=== PATIENT | female | born 1985 | race Two or more races ===

== ENCOUNTER 2019-05-18 11:16 | Inpatient (IN) | payer OTHER ==
[2019-05-18 13:13] VITALS: BMI 23.0
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
[2019-05-18] MEDS ORDERED: MAGNESIUM HYDROX 2400MG/30ML ORAL SUSPENSION 30 ML CUP PO PRN (14:32)
[2019-05-18] MEDS ORDERED: MAG HYDROX/AL HYDROX/SIMETH 30 ML UNIT-DOSE CUP PO PRN (14:32)
[2019-05-18] MEDS ORDERED: BISMUTH SUBSALICYLATE 262 MG/15 ML BTL PO PRN (14:32)
[2019-05-18] MEDS ORDERED: IBUPROFEN 400 MG TABLET (FP) PO PRN ×2 (14:32)
[2019-05-18] MEDS ORDERED: MAGNESIUM CITRATE 300 ML BOTTLE PO PRN (14:32)
[2019-05-18] MEDS ORDERED: MENTHOL/PHENOL 1 EACH UD MM PRN (14:32)
[2019-05-18] MEDS ORDERED: chlordiazePOXIDE HCL 25 MG CAPSULE PO PRN (14:32)
[2019-05-18] MEDS ORDERED: ONDANSETRON *ODT* 4 MG TABLET SL PRN (14:32)
[2019-05-18] MEDS ORDERED: ACETAMINOPHEN 325 MG TABLET (FP) PO PRN (14:32)
[2019-05-18] MEDS ORDERED: chlordiazePOXIDE HCL 25 MG CAPSULE PO ONE (15:45)
[2019-05-18 16:34] LABS: HEMATOCRIT 37.4 % (32.4-45.2); HEMOGLOBIN 12.5 GM/dL (10.7-15.3); MCH 32.1 pg (25.7-33.7); MCHC 33.5 g/dl (32.0-36.0); MEAN CELL VOLUME 95.8 fl (80-96); MEAN PLT VOLUME 8.3 fl (7.5-11.1); PLATELET COUNT 244 K/MM3 (134-434); RBC 3.91 M/mm3 (3.60-5.2); RDW 13.3 % (11.6-15.6); WHITE BLOOD COUNT 11.2 K/mm3 (4.0-10.0)
[2019-05-18 16:48] LABS: ALBUMIN 3.2 g/dl (3.4-5.0); BILIRUBIN,TOTAL 0.2 mg/dL (0.2-1); CALCIUM 8.6 mg/dL (8.5-10.1); CREATININE 0.7 mg/dL (0.55-1.3); POTASSIUM 3.3 mmol/L (3.5-5.1); TOT PROT 6.1 g/dl (6.4-8.2)
[2019-05-18] MEDS: chlordiazePOXIDE HCL 25 MG CAPSULE PO SCH ×2 (16:55→22:59)
[2019-05-18] MEDS: hydrOXYzine PAMOATE 50 MG CAPSULE (FP) PO PRN (16:56)
--- NOTE | 2019-05-18 17:29 | EKG ---
Test Reason : Blood Pressure : / mmHG Vent. Rate : 043 BPM Atrial Rate : 043 BPM P-R Int : 164 ms QRS Dur : 088 ms QT Int : 520 ms P-R-T Axes : 055 015 039 degrees QTc Int : 439 ms MARKED SINUS BRADYCARDIA NONSPECIFIC T WAVE ABNORMALITY ABNORMAL ECG NO PREVIOUS ECGS AVAILABLE Confirmed by NICANOR GONZALEZ MD ([id number]) on 05/18/2019 5:29:40 PM Referred By: Confirmed By:NICANOR GONZALEZ MD
[2019-05-18] MEDS: THIAMINE HCL 100 MG TABLET (FP) PO SCH (22:56)
[2019-05-18] MEDS: MELATONIN 5 MG TABLETS PO PRN (22:56)
[2019-05-19] MEDS: chlordiazePOXIDE HCL 25 MG CAPSULE PO SCH ×4 (05:26→22:24)
[2019-05-19] MEDS: ACETAMINOPHEN 325 MG TABLET (FP) PO PRN (05:27)
--- NOTE | 2019-05-19 09:52 | PN ---
S CIWA - CIWA Score Nausea/Vomitin-Mild Nausea/No Vomiting Muscle Tremors: 4-Moderate,w/Arms Extend Anxiety: 3 Agitation: 2 Paroxysmal Sweats: 1-Minimal Palms Moist Orientation: 1-Uncertain about Date Tacttile Disturbances: 1-Very Mild Itch/Numbness Auditory Disturbances: 0-None Visual Disturbances: 0-None Headache: 0-None Present CIWA-Ar Total Score: 13 BHS Progress Note (SOAP) Subjective: 34 years old female admitted on 05/18/19 for acute alcohol and benzo withdrawal sx management doing well with librium detox protocol social with peers in day room after breakfast ambulate on hallway Objective: 05/19/19 10:00 Vital Signs Temperature 98.5 F 05/19/19 09:37 Pulse Rate 59 L 05/19/19 09:37 Respiratory Rate 18 05/19/19 09:37 Blood Pressure 121/58 L 05/19/19 09:37 O2 Sat by Pulse Oximetry (%) Laboratory Last Values WBC 11.2 K/mm3 (4.0-10.0) H 05/18/19 15:10 RBC 3.91 M/mm3 (3.60-5.2) 05/18/19 15:10 Hgb 12.5 GM/dL (10.7-15.3) 05/18/19 15:10 Hct 37.4 % (32.4-45.2) 05/18/19 15:10 MCV 95.8 fl (80-96) 05/18/19 15:10 MCH 32.1 pg (25.7-33.7) 05/18/19 15:10 MCHC 33.5 g/dl (32.0-36.0) 05/18/19 15:10 RDW 13.3 % (11.6-15.6) 05/18/19 15:10 Plt Count 244 K/MM3 (134-434) D 05/18/19 15:10 MPV 8.3 fl (7.5-11.1) 05/18/19 15:10 Sodium 143 mmol/L (136-145) 05/18/19 15:10 Potassium 3.3 mmol/L (3.5-5.1) L 05/18/19 15:10 Chloride 105 mmol/L (98-107) 05/18/19 15:10 Carbon Dioxide 33 mmol/L (21-32) H 05/18/19 15:10 Anion Gap 5 MMOL/L (8-16) L 05/18/19 15:10 BUN 5.0 mg/dL (7-18) L 05/18/19 15:10 Creatinine 0.7 mg/dL (0.55-1.3) 05/18/19 15:10 Est GFR (CKD-EPI)AfAm 131.94 05/18/19 15:10 Est GFR (CKD-EPI)NonAf 113.84 05/18/19 15:10 Random Glucose 62 mg/dL (74-106) L 05/18/19 15:10 Calcium 8.6 mg/dL (8.5-10.1) 05/18/19 15:10 Total Bilirubin 0.2 mg/dL (0.2-1) 05/18/19 15:10 AST 10 U/L (15-37) L 05/18/19 15:10 ALT 14 U/L (13-61) 05/18/19 15:10 Alkaline Phosphatase 77 U/L (45-117) 05/18/19 15:10 Total Protein 6.1 g/dl (6.4-8.2) L 05/18/19 15:10 Albumin 3.2 g/dl (3.4-5.0) L 05/18/19 15:10 POC Urine HCG, Qual Negative 05/18/19 14:06 RPR Titer Nonreactive (NONREACTIVE) 05/18/19 15:10 lab noted low K+ 05/19/19 10:04 repeat K+ 05/22/19 K+ supplement 20 meq bid x 6 doses Assessment: 05/19/19 10:04 alcohol and benzo withdrawal sx Plan: continue alcohol and benzo detox
[2019-05-19] MEDS ORDERED: METHADONE HCL 40 MG DISPERSABLE TABLET PO ONE (10:00)
[2019-05-19] MEDS ORDERED: POTASSIUM CHLORIDE ORAL LIQUID 20 MEQ/15 ML PO SCH (10:00)
[2019-05-19] MEDS: PRENATAL VITAMINS W/ FOLIC ACID TABLET (FP) PO SCH (10:59)
[2019-05-19] MEDS: POTASSIUM CHLORIDE TABS 20 MEQ TABLET.ER (FP) PO SCH (11:02)
[2019-05-19] MEDS: NICOTINE 21 MG/24 HOURS TOPICAL PATCH TD SCH (11:03)
[2019-05-19] MEDS: METHOCARBAMOL 500 MG TABLET PO PRN (11:51)
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
[2019-05-19 15:05] LABS: URINE APPEARANCE CLEAR; URINE BILIRUBIN NEGATIVE (NEGATIVE); URINE COLOR YELLOW; URINE GLUCOSE (UA) NEGATIVE (NEGATIVE); URINE KETONE NEGATIVE (NEGATIVE); URINE LEUK ESTERASE NEGATIVE (NEGATIVE); URINE NITRITE NEGATIVE (NEGATIVE); URINE PROTEIN NEGATIVE (NEGATIVE); URINE UROBILINOGEN 0.2 mg/dL (0.2-1.0)
[2019-05-19] MEDS: NICOTINE POLACRILEX 4 MG GUM BUC PRN (15:46)
[2019-05-19] MEDS: THIAMINE HCL 100 MG TABLET (FP) PO SCH (22:24)
[2019-05-19] MEDS: METHYL SALICYLATE/MENTHOL OINT 30 GM TUBE TP SCH (22:24)
[2019-05-19] MEDS: MELATONIN 5 MG TABLETS PO PRN (22:25)
[2019-05-20] MEDS: hydrOXYzine PAMOATE 50 MG CAPSULE (FP) PO PRN (03:32)
[2019-05-20] MEDS: ACETAMINOPHEN 325 MG TABLET (FP) PO PRN (03:32)
[2019-05-20] MEDS: METHADONE HCL 40 MG DISPERSABLE TABLET PO SCH (05:18)
[2019-05-20] MEDS: chlordiazePOXIDE HCL 25 MG CAPSULE PO SCH ×4 (05:19→22:37)
--- NOTE | 2019-05-20 10:36 | PN ---
S CIWA - CIWA Score Nausea/Vomitin-Mild Nausea/No Vomiting Muscle Tremors: 2 Anxiety: 1-Mildly Anxious Agitation: 2 Paroxysmal Sweats: 1-Minimal Palms Moist Orientation: 0-Oriented Tacttile Disturbances: 0-None Auditory Disturbances: 0-None Visual Disturbances: 0-None Headache: 1-Very Mild CIWA-Ar Total Score: 8 BHS Progress Note (SOAP) Subjective: pt states she is feeling OK. ON detox protocol O: Vital Signs - 24 hr 05/19/19 05/19/19 05/19/19 14:10 17:48 21:20 Temperature 96.0 F L 97.5 F L 97 F L Pulse Rate 49 L 44 L 60 Respiratory 20 16 17 Rate Blood Pressure 103/59 L 111/66 100/54 L 05/20/19 05/20/19 05/20/19 03:30 06:38 09:32 Temperature 97 F L 96.9 F L Pulse Rate 53 L 52 L Respiratory 18 17 18 Rate Blood Pressure 98/54 L 96/60 Laboratory Tests 05/18/19 05/18/19 05/18/19 14:06 15:10 15:10 WBC 11.2 H RBC 3.91 Hgb 12.5 Hct 37.4 MCV 95.8 MCH 32.1 MCHC 33.5 RDW 13.3 Plt Count 244 D MPV 8.3 Sodium 143 Potassium 3.3 L Chloride 105 Carbon Dioxide 33 H Anion Gap 5 L BUN 5.0 L Creatinine 0.7 Est GFR (CKD-EPI)AfAm 131.94 Est GFR (CKD-EPI)NonAf 113.84 Random Glucose 62 L Calcium 8.6 Total Bilirubin 0.2 AST 10 L ALT 14 Alkaline Phosphatase 77 Total Protein 6.1 L Albumin 3.2 L Urine Color Urine Appearance Urine pH Ur Specific [place] Urine Protein Urine Glucose (UA) Urine Ketones Urine Blood Urine Nitrite Urine Bilirubin Urine Urobilinogen Ur Leukocyte Esterase POC Urine HCG, Qual Negative RPR Titer 05/18/19 05/19/19 15:10 12:00 WBC RBC Hgb Hct MCV MCH MCHC RDW Plt Count MPV Sodium Potassium Chloride Carbon Dioxide Anion Gap BUN Creatinine Est GFR (CKD-EPI)AfAm Est GFR (CKD-EPI)NonAf Random Glucose Calcium Total Bilirubin AST ALT Alkaline Phosphatase Total Protein Albumin Urine Color Yellow Urine Appearance Clear Urine pH 8.0 D Ur Specific [place] 1.004 L Urine Protein Negative Urine Glucose (UA) Negative Urine Ketones Negative Urine Blood Negative Urine Nitrite Negative Urine Bilirubin Negative Urine Urobilinogen 0.2 Ur Leukocyte Esterase Negative POC Urine HCG, Qual RPR Titer Nonreactive alert and oriented PE WNL a/p: continue alcohol detox protocol- getting better
[2019-05-20] MEDS: PRENATAL VITAMINS W/ FOLIC ACID TABLET (FP) PO SCH (10:37)
[2019-05-20] MEDS: METHYL SALICYLATE/MENTHOL OINT 30 GM TUBE TP SCH ×2 (10:37→22:36)
[2019-05-20] MEDS: NICOTINE 21 MG/24 HOURS TOPICAL PATCH TD SCH (10:37)
[2019-05-20] MEDS: POTASSIUM CHLORIDE TABS 20 MEQ TABLET.ER (FP) PO SCH (10:37)
[2019-05-20] MEDS: NICOTINE POLACRILEX 4 MG GUM BUC PRN (10:38)
[2019-05-20] MEDS: METHOCARBAMOL 500 MG TABLET PO PRN (17:30)
[2019-05-20] MEDS: THIAMINE HCL 100 MG TABLET (FP) PO SCH (22:36)
[2019-05-20] MEDS: MELATONIN 5 MG TABLETS PO PRN (22:37)
[2019-05-21] MEDS: hydrOXYzine PAMOATE 50 MG CAPSULE (FP) PO PRN (03:34)
[2019-05-21] MEDS: METHOCARBAMOL 500 MG TABLET PO PRN (03:34)
[2019-05-21] MEDS: ACETAMINOPHEN 325 MG TABLET (FP) PO PRN (03:34)
[2019-05-21] MEDS: chlordiazePOXIDE HCL 10 MG CAPSULE PO SCH ×2 (05:19→10:53)
[2019-05-21] MEDS: METHADONE HCL 40 MG DISPERSABLE TABLET PO SCH (05:19)
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
[2019-05-21] MEDS: POTASSIUM CHLORIDE TABS 20 MEQ TABLET.ER (FP) PO SCH (10:53)
[2019-05-21] MEDS: METHYL SALICYLATE/MENTHOL OINT 30 GM TUBE TP SCH (10:53)
[2019-05-21] MEDS: NICOTINE 21 MG/24 HOURS TOPICAL PATCH TD SCH (10:54)
[2019-05-21] MEDS: PRENATAL VITAMINS W/ FOLIC ACID TABLET (FP) PO SCH (10:54)
[2019-05-21] MEDS: NICOTINE POLACRILEX 4 MG GUM BUC PRN (10:54)
[2019-05-21] MEDS ORDERED: BENZOYL PEROXIDE 5% 60 GM GEL..GRAM. TP SCH (12:00)
[2019-05-21 13:57] VITALS: BP 92/60; PULSE 53; TEMP 98.7
[2019-05-22] MEDS ORDERED: chlordiazePOXIDE HCL 10 MG CAPSULE PO SCH (05:00)
[2019-05-23] MEDS ORDERED: chlordiazePOXIDE HCL 10 MG CAPSULE PO ONE (05:00)
== END 2019-05-21 13:30 | disposition home or self-care (01) | DRG 773 ==
LOC: YASAS 11:16 → Y3N 15:38
PROVIDERS: ADMIT Surgery; ATTEND Surgery
PROC: HZ2ZZZZ Detoxification Services for Substance Abuse Treatment (ICD-10-PCS; principal; 2019-05-18)
DX: F11.20 Opioid dependence, uncomplicated (principal); F10.230 Alcohol dependence with withdrawal, uncomplicated; F13.230 Sedative, hypnotic or anxiolytic dependence with withdrawal, uncomplicated; F14.20 Cocaine dependence, uncomplicated; F17.213 Nicotine dependence, cigarettes, with withdrawal; F31.9 Bipolar disorder, unspecified; F91.8 Other conduct disorders; R63.4 Abnormal weight loss; B18.2 Chronic viral hepatitis C; Z21 Asymptomatic human immunodeficiency virus [HIV] infection status; R00.1 Bradycardia, unspecified; Z91.14 Patient's other noncompliance with medication regimen; Z87.42 Personal history of other diseases of the female genital tract; Z86.69 Personal history of other diseases of the nervous system and sense organs; Z91.5 Personal history of self-harm
CPT/HCPCS: 36415; 80053; 81003; 81025; 85027; 86480; 86593; 93005; 93010